=== PATIENT | male | born 1965 | race Hispanic/Latino ===

== ENCOUNTER 2022-02-13 08:48 | Inpatient (IN) | payer OTHER ==
[~2022-02-13] VITALS: Ht 167.6 cm; Wt 71.4 kg
[2022-02-13 11:32] VITALS: BP 143/93
[2022-02-13] MEDS ORDERED: FAMO20TA8 PO (11:40)
[2022-02-13] MEDS ORDERED: GLYB2.5T5 PO (11:40)
[2022-02-13] MEDS ORDERED: METF-445 PO (11:40)
[2022-02-13] MEDS ORDERED: GEMF600T89 PO (11:40)
[2022-02-13] MEDS ORDERED: CHOL500050 PO (11:40)
[2022-02-13] MEDS ORDERED: PROM25TA7 PO (11:40)
[2022-02-13 14:57] VITALS: BP 140/82
[2022-02-13 15:13] LABS: INR 0.94 (0.85-1.15); PROTHROMBIN TIME 10.3 SEC (9.6-11.6)
[2022-02-13 15:14] LABS: PARTIAL THROMBOPLASTIN TIME 40.6 SEC (26.3-35.5)
[2022-02-13] MEDS ORDERED: HEPARIN 25,000 UNITS/250ML D5W 250 ML IV SCH (15:30)
[2022-02-13] MEDS ORDERED: HEPARIN 5,000 UNIT VIAL IV SCH (16:30)
[2022-02-13] MEDS ORDERED: ACETAMINOPHEN 325 MG TAB PO PRN (19:30)
[2022-02-13] MEDS ORDERED: TEMAZEPAM 15 MG CAPSULE PO PRN (19:30)
[2022-02-13] MEDS ORDERED: ACETAMINOPHEN 650 MG SUPPOSITORY RC PRN (19:30)
[2022-02-13] MEDS ORDERED: ONDANSETRON 4MG INJ IVP PRN (19:30)
[2022-02-13] MEDS ORDERED: HYDRALAZINE 20MG/ML VIAL IV PRN (19:30)
[2022-02-13] MEDS ORDERED: MORPHINE 2 MG SYG IVP PRN (19:30)
[2022-02-13] MEDS ORDERED: LACTULOSE 20 GM/30 ML UDCUP PO PRN (19:30)
[2022-02-13] MEDS ORDERED: NITROGLYCERIN 50MG/D5W 250ML 250 BOT IV PRN (19:30)
[2022-02-13 19:42] VITALS: BP 110/69
[2022-02-13] MEDS: INSULIN HUMULIN R 100 UNIT/ML 3ML SQ SCH (20:21)
[2022-02-13 21:11] LABS: INR 0.94 (0.85-1.15); PROTHROMBIN TIME 10.3 SEC (9.6-11.6)
[2022-02-13 21:12] LABS: PARTIAL THROMBOPLASTIN TIME 47.6 SEC (26.3-35.5)
[2022-02-13 23:53] VITALS: BP 96/67
[2022-02-14 03:41] LABS: BASOPHILS % (AUTO) 0.4 % (0.0-5.0); EOSINOPHILS % (AUTO) 4.2 % (0.0-8.0); HEMATOCRIT 37.5 % (42-54); LYMPHOCYTES % (AUTO) 27.4 % (21.0-51.0); MEAN CORPUSCULAR HEMOGLOBIN 30.4 pg (27.0-33.0); MEAN CORPUSCULAR HGB CONC 34.1 g/dL (32.0-36.0); MEAN CORPUSCULAR VOLUME 89.1 fL (79-99); MONOCYTES % (AUTO) 11.4 % (3.0-13.0); NEUTROPHILS % (AUTO) 56.2 % (40.0-77.0); PLATELET COUNT (AUTO) 206 K/uL (130-400); RED BLOOD CELL COUNT(AUTO) 4.21 MIL/uL (4.50-6.20); RED CELL DISTRIBUTION WIDTH 12.3 % (11.0-15.5); WHITE BLOOD COUNT (AUTO) 7.1 K/uL (4.8-10.8)
[2022-02-14 03:59] LABS: CREATININE 0.8 mg/dL (0.5-1.5); MAGNESIUM 1.9 mg/dL (1.80-2.40); PHOSPHORUS 3.5 mg/dL (2.5-4.9); POTASSIUM 3.1 mmol/L (3.5-5.1)
[2022-02-14 04:05] LABS: B-TYPE NATRIURETIC PEPTIDE 136 pg/mL (0-100)
[2022-02-14 04:26] LABS: PROTHROMBIN TIME 10.9 SEC (9.6-11.6)
[2022-02-14 04:36] VITALS: BP 101/70
[2022-02-14 04:49] LABS: PARTIAL THROMBOPLASTIN TIME 137.8 SEC (26.3-35.5)
[2022-02-14] MEDS ORDERED: LIDOCAINE HCL-MPF 1% 2ML VIAL IJ PRN (06:00)
[2022-02-14] MEDS ORDERED: KCL 20 MEQ ERTAB PO PRN (06:00)
[2022-02-14] MEDS ORDERED: POTASSIUM CHLORIDE 20MEQ/100ML 100 ML IV PRN (06:00)
[2022-02-14] MEDS ORDERED: MAGNESIUM 2GM PREMIX 50ML 50 ML IV PRN (06:00)
[2022-02-14] MEDS ORDERED: KCL 20 MEQ ERTAB PO ONE (06:11)
[2022-02-14] MEDS ORDERED: MAGNESIUM 2GM PREMIX 50ML 50 ML IV ONE (06:11)
[2022-02-14] MEDS: INSULIN HUMULIN R 100 UNIT/ML 3ML SQ SCH ×4 (06:28→21:24)
[2022-02-14 07:00] VITALS: BP 118/70
[2022-02-14] MEDS: POLYETHYLENE GLYCOL 3350 17 GM POWD.PACK PO SCH (07:55)
[2022-02-14] MEDS: PANTOPRAZOLE 40 MG TAB DR PO SCH (07:55)
[2022-02-14] MEDS: ASPIRIN 81MG CHEW TAB PO SCH (07:55)
[2022-02-14 11:08] LABS: INR 0.97 (0.85-1.15); PROTHROMBIN TIME 10.6 SEC (9.6-11.6)
[2022-02-14 11:19] VITALS: BP 99/65
[2022-02-14 11:24] LABS: PARTIAL THROMBOPLASTIN TIME 93.4 SEC (26.3-35.5)
[2022-02-14] MEDS: POTASSIUM CHLORIDE 10% ELIXIR 20 MEQ/15 ML UDCUP PO PRN (14:01)
[2022-02-14 15:03] VITALS: BP 127/78
[2022-02-14 19:34] VITALS: BP 126/77
[2022-02-14] MEDS: METOPROLOL TARTRATE 25 MG TAB PO SCH (20:35)
[2022-02-14 23:47] VITALS: BP 94/62
[2022-02-15] VITALS (32 sets, daily range): BP systolic 89–285; BP diastolic 46–282
[2022-02-15 03:40] LABS: ABG HCO3 23.6 mmol/L (21.0-28.0); ABG OXYGEN SATURATION 95.6 % (95.0-99.0); ABG PCO2 40 mmHg (35-48)
[2022-02-15 03:44] LABS: HEMATOCRIT 38.4 % (42-54); MEAN CORPUSCULAR HEMOGLOBIN 30.6 pg (27.0-33.0); MEAN CORPUSCULAR HGB CONC 33.6 g/dL (32.0-36.0); RED BLOOD CELL COUNT(AUTO) 4.22 MIL/uL (4.50-6.20); RED CELL DISTRIBUTION WIDTH 12.6 % (11.0-15.5); WHITE BLOOD COUNT (AUTO) 6.3 K/uL (4.8-10.8)
[2022-02-15 03:53] LABS: INR 0.96 (0.85-1.15); PROTHROMBIN TIME 10.5 SEC (9.6-11.6)
[2022-02-15 03:54] LABS: CREATININE 0.9 mg/dL (0.5-1.5); POTASSIUM 3.8 mmol/L (3.5-5.1)
[2022-02-15 03:55] LABS: PARTIAL THROMBOPLASTIN TIME 29.6 SEC (26.3-35.5)
[2022-02-15 03:57] LABS: HEMOGLOBIN A1C 11.5 % (4.0-6.0)
[2022-02-15 03:58] LABS: ALBUMIN 2.8 g/dL (3.5-5.0); TOTAL PROTEIN, SERUM 6.2 g/dL (6.0-8.3)
[2022-02-15] MEDS: INSULIN HUMULIN R 100 UNIT/ML 3ML SQ SCH ×3 (05:51→16:30)
[2022-02-15] MEDS ORDERED: NOREPINEPHRINE BITARTRATE 8 MG in 0.9% NACL 250ML 250 ML IV PRN (07:30)
[2022-02-15] MEDS ORDERED: AMINOCAPROIC ACID 5,000MG VIAL 15,000 MG in 0.9% NACL 500ML IV.SOLN 420 ML IV PRN (07:30)
[2022-02-15] MEDS ORDERED: EPINEPHRINE PF 1MG (1:1,000) 10 MG in 0.9% NACL 250ML 240 ML IV PRN ×2 (07:30→17:00)
[2022-02-15] MEDS: ASPIRIN 81MG CHEW TAB PO SCH (09:00)
[2022-02-15] MEDS: POLYETHYLENE GLYCOL 3350 17 GM POWD.PACK PO SCH (09:00)
[2022-02-15] MEDS ORDERED: CEFAZOLIN SODIUM 1 GM VIAL IVP SCH (09:00)
[2022-02-15] MEDS: METOPROLOL TARTRATE 25 MG TAB PO SCH (09:20)
[2022-02-15] MEDS: PANTOPRAZOLE 40 MG TAB DR PO SCH (09:21)
[2022-02-15] MEDS ORDERED: CEFAZOLIN SODIUM 1 GM VIAL ONE ×2 (14:42→16:11)
[2022-02-15] MEDS ORDERED: PROTAMINE SULFATE 10 MG/ML 25ML VIAL IV ONE (15:23)
[2022-02-15] MEDS ORDERED: AMINOCAPROIC ACID 5,000MG VIAL ONE (15:23)
[2022-02-15] MEDS ORDERED: NOREPINEPHRINE BITARTRATE 1 MG/1 ML ML IV ONE (15:23)
[2022-02-15] MEDS ORDERED: ESMOLOL HCL 10 MG/ML 10 ML VIAL ONE (15:23)
[2022-02-15] MEDS ORDERED: EPINEPHRINE PF 1MG (1:1,000) 1 MG/ML AMP ONE (15:23)
[2022-02-15] MEDS ORDERED: LIDOCAINE PF 100MG/5ML (2%) SYRINGE 5ML ONE (15:23)
[2022-02-15] MEDS ORDERED: HEPARIN 10,000 UNIT/10ML (1,000 UNIT/ML) VIAL ONE ×2 (15:23→17:17)
[2022-02-15] MEDS ORDERED: PROPOFOL 10 MG/ML 20ML VIAL IV ONE (15:23)
[2022-02-15] MEDS ORDERED: FENTANYL CITRATE PF 50 MCG/1 ML 20ML VIAL IJ ONE (15:23)
[2022-02-15] MEDS ORDERED: MIDAZOLAM HCL 1 MG/ML 2ML VIAL ONE (15:24)
[2022-02-15] MEDS ORDERED: ROCURONIUM 10MG/1ML SYR 10 MG/ML ML ONE ×2 (15:24→16:55)
[2022-02-15] MEDS ORDERED: CEFAZOLIN SODIUM 1 GM VIAL IVP PRN (15:30)
[2022-02-15] MEDS ORDERED: PAPAVERINE HCL 30 MG/ML 2ML VIAL ONE (16:11)
[2022-02-15 16:19] LABS: ABG BASE EXCESS -4.7 mmol/L (-2.0-3.0); ABG HCO3 21.9 mmol/L (21.0-28.0); ABG OXYGEN SATURATION 99.4 % (95.0-99.0); ABG PCO2 46 mmHg (35-48)
[2022-02-15] MEDS ORDERED: DEXTROSE 50%-WATER 50 ML DISP.SYRIN IV PRN (17:00)
[2022-02-15] MEDS ORDERED: NITROGLYCERIN 50MG/D5W 250ML 250 BOT IV SCH (17:00)
[2022-02-15] MEDS ORDERED: 0.9%NACL 10ML VIAL IVP PRN (17:00)
[2022-02-15] MEDS ORDERED: AMINOCAPROIC ACID 5,000MG VIAL 15,000 MG in 0.9% NACL 250ML 250 ML IV SCH (17:00)
[2022-02-15] MEDS ORDERED: PROPOFOL 1000 MG/100 ML 100 ML IV PRN (17:00)
[2022-02-15] MEDS ORDERED: TRAMADOL HCL 50 MG TABLET PO PRN (17:00)
[2022-02-15] MEDS ORDERED: MORPHINE 2 MG SYG IV PRN (17:00)
[2022-02-15] MEDS ORDERED: 0.9% NACL 500ML IV.SOLN 500 ML IV SCH (17:00)
[2022-02-15] MEDS ORDERED: ACETAMINOPHEN 650 MG SUPPOSITORY RC PRN (17:00)
[2022-02-15] MEDS ORDERED: MORPHINE 4 MG SYG IV PRN (17:00)
[2022-02-15] MEDS ORDERED: 0.9%NACL 1000ML 1,000 ML IV SCH (17:00)
[2022-02-15] MEDS ORDERED: ALBUMIN (HUMAN) 5% 250 ML IV PRN (17:00)
[2022-02-15] MEDS ORDERED: GLUCAGON 1MG KIT 1 MG ML IM PRN (17:00)
[2022-02-15] MEDS ORDERED: ACETAMINOPHEN 325 MG TAB PO PRN (17:00)
[2022-02-15 18:12] LABS: ABG HCO3 20.5 mmol/L (21.0-28.0); ABG OXYGEN SATURATION 99.2 % (95.0-99.0); ABG PCO2 36 mmHg (35-48)
[2022-02-15] MEDS ORDERED: ASPIRIN 81MG CHEW TAB NG ONE (18:30)
[2022-02-15 18:54] LABS: ABG BASE EXCESS -5.8 mmol/L (-2.0-3.0); ABG HCO3 18.6 mmol/L (21.0-28.0); ABG OXYGEN SATURATION 98.7 % (95.0-99.0); ABG PCO2 33 mmHg (35-48)
[2022-02-15 18:54] LABS: HEMATOCRIT 35.2 % (42-54); MEAN CORPUSCULAR HGB CONC 34.1 g/dL (32.0-36.0); RED BLOOD CELL COUNT(AUTO) 3.87 MIL/uL (4.50-6.20); RED CELL DISTRIBUTION WIDTH 12.5 % (11.0-15.5); WHITE BLOOD COUNT (AUTO) 17.2 K/uL (4.8-10.8)
[2022-02-15 19:08] LABS: MAGNESIUM 1.4 mg/dL (1.80-2.40); PHOSPHORUS 3.7 mg/dL (2.5-4.9)
[2022-02-15] MEDS: SODIUM BICARB 50MEQ 50ML VIAL IV PRN ×7 (19:11→23:09)
[2022-02-15] MEDS: CALCIUM GLUC 1GM 1 GM in 0.9%NACL 50ML 50 ML IV PRN ×3 (19:11→21:20)
[2022-02-15] MEDS: POTASSIUM CHLORIDE 20MEQ/100ML 100 ML IV PRN ×3 (19:13→22:55)
[2022-02-15 19:14] LABS: INR 1.1 (0.85-1.15); PROTHROMBIN TIME 11.9 SEC (9.6-11.6)
[2022-02-15 19:16] LABS: PARTIAL THROMBOPLASTIN TIME 27.1 SEC (26.3-35.5); POTASSIUM 2.9 mmol/L (3.5-5.1)
[2022-02-15] MEDS: INSULIN REGULAR, HUMAN 3ML 100 UNIT in 0.9%NACL 100ML 99 ML IV SCH ×2 (19:17)
[2022-02-15] MEDS: MAGNESIUM 2GM PREMIX 50ML 50 ML IV PRN (20:05)
[2022-02-15] MEDS: ATORVASTATIN 40 MG TABLET PO SCH (20:07)
[2022-02-15] MEDS: FAMOTIDINE 20MG VIAL IV SCH (20:07)
[2022-02-15 20:13] LABS: ABG BASE EXCESS -2.2 mmol/L (-2.0-3.0); ABG HCO3 22.7 mmol/L (21.0-28.0); ABG PCO2 39 mmHg (35-48)
[2022-02-15 21:17] LABS: ABG HCO3 21.6 mmol/L (21.0-28.0); ABG OXYGEN SATURATION 98.3 % (95.0-99.0); ABG PCO2 37 mmHg (35-48)
[2022-02-15] MEDS: ONDANSETRON 4MG INJ IV PRN (21:32)
[2022-02-15] MEDS: CEFAZOLIN SODIUM 1 GM VIAL IV SCH (22:05)
[2022-02-15 22:35] LABS: ABG BASE EXCESS 0.2 mmol/L (-2.0-3.0); ABG HCO3 24.4 mmol/L (21.0-28.0); ABG OXYGEN SATURATION 98.2 % (95.0-99.0); ABG PCO2 38 mmHg (35-48)
[2022-02-15 23:07] LABS: ABG BASE EXCESS -0.1 mmol/L (-2.0-3.0); ABG HCO3 25.4 mmol/L (21.0-28.0); ABG OXYGEN SATURATION 98.1 % (95.0-99.0); ABG PCO2 45 mmHg (35-48)
[2022-02-16] VITALS (105 sets, daily range): BP systolic 50–173; BP diastolic 32–82
[2022-02-16 00:19] LABS: ABG BASE EXCESS 1.3 mmol/L (-2.0-3.0); ABG HCO3 26.1 mmol/L (21.0-28.0); ABG OXYGEN SATURATION 97.7 % (95.0-99.0); ABG PCO2 42 mmHg (35-48)
[2022-02-16] MEDS: CALCIUM GLUC 1GM 1 GM in 0.9%NACL 50ML 50 ML IV PRN ×6 (00:24→17:36)
[2022-02-16] MEDS: POTASSIUM CHLORIDE 20MEQ/100ML 100 ML IV PRN ×4 (00:25→09:25)
[2022-02-16] MEDS ORDERED: 0.9% NACL 250ML 250 ML ONE (00:50)
[2022-02-16] MEDS: ONDANSETRON 4MG INJ IV PRN ×3 (03:27→19:49)
[2022-02-16] MEDS: TRAMADOL HCL 50 MG TABLET PO PRN (04:11)
[2022-02-16 04:13] LABS: HEMATOCRIT 31.8 % (42-54); MEAN CORPUSCULAR HEMOGLOBIN 30.9 pg (27.0-33.0); MEAN CORPUSCULAR HGB CONC 33.6 g/dL (32.0-36.0); MEAN CORPUSCULAR VOLUME 91.9 fL (79-99); RED BLOOD CELL COUNT(AUTO) 3.46 MIL/uL (4.50-6.20); RED CELL DISTRIBUTION WIDTH 12.8 % (11.0-15.5); WHITE BLOOD COUNT (AUTO) 12.9 K/uL (4.8-10.8)
[2022-02-16 04:29] LABS: INR 1.02 (0.85-1.15); PROTHROMBIN TIME 11.1 SEC (9.6-11.6)
[2022-02-16 04:30] LABS: PARTIAL THROMBOPLASTIN TIME 26.8 SEC (26.3-35.5)
[2022-02-16 04:35] LABS: CREATININE 1.2 mg/dL (0.5-1.5); MAGNESIUM 1.8 mg/dL (1.80-2.40); PHOSPHORUS 0.7 mg/dL (2.5-4.9)
[2022-02-16 04:44] LABS: POTASSIUM 2.6 mmol/L (3.5-5.1)
[2022-02-16 05:11] LABS: ABG BASE EXCESS 1.9 mmol/L (-2.0-3.0); ABG HCO3 27.3 mmol/L (21.0-28.0); ABG OXYGEN SATURATION 97.6 % (95.0-99.0); ABG PCO2 46 mmHg (35-48)
[2022-02-16] MEDS: MAGNESIUM 2GM PREMIX 50ML 50 ML IV PRN ×2 (05:19→13:26)
[2022-02-16] MEDS: CEFAZOLIN SODIUM 1 GM VIAL IV SCH ×2 (05:58→13:26)
[2022-02-16] MEDS: POTASSIUM PHOS 15 mMOL+NS250ML 250 ML IV PRN (06:32)
[2022-02-16] MEDS ORDERED: ACETAMINOPHEN 325 MG TAB PO PRN (07:30)
[2022-02-16] MEDS: FAMOTIDINE 20MG VIAL IV SCH ×2 (07:47→21:13)
[2022-02-16] MEDS: FUROSEMIDE 20MG VIAL IV SCH ×2 (07:47→21:13)
[2022-02-16] MEDS: INSULIN REGULAR, HUMAN 3ML 100 UNIT in 0.9%NACL 100ML 99 ML IV SCH ×2 (09:05)
[2022-02-16 09:16] LABS: POTASSIUM 3.7 mmol/L (3.5-5.1)
[2022-02-16] MEDS ORDERED: ALBUMIN (HUMAN) 5% 250 ML IV ONE (09:56)
[2022-02-16 12:31] LABS: CREATININE 0.9 mg/dL (0.5-1.5); MAGNESIUM 1.8 mg/dL (1.80-2.40); POTASSIUM 4.2 mmol/L (3.5-5.1)
[2022-02-16 15:52] LABS: HEMATOCRIT 29.9 % (42-54)
[2022-02-16 16:07] LABS: MAGNESIUM 2.5 mg/dL (1.80-2.40); PHOSPHORUS 5.1 mg/dL (2.5-4.9); POTASSIUM 4.2 mmol/L (3.5-5.1)
[2022-02-16] MEDS ORDERED: CALCIUM GLUC 1GM/10ML VIAL ONE (17:28)
[2022-02-16] MEDS: ATORVASTATIN 40 MG TABLET PO SCH (21:13)
[2022-02-17] VITALS (31 sets, daily range): BP systolic 87–166; BP diastolic 44–88
[2022-02-17 04:03] LABS: HEMATOCRIT 31.5 % (42-54); MEAN CORPUSCULAR HEMOGLOBIN 30.7 pg (27.0-33.0); MEAN CORPUSCULAR VOLUME 92.9 fL (79-99); RED BLOOD CELL COUNT(AUTO) 3.39 MIL/uL (4.50-6.20); RED CELL DISTRIBUTION WIDTH 13.1 % (11.0-15.5); WHITE BLOOD COUNT (AUTO) 15.6 K/uL (4.8-10.8)
[2022-02-17 04:25] LABS: CREATININE 0.9 mg/dL (0.5-1.5); POTASSIUM 4.5 mmol/L (3.5-5.1)
[2022-02-17] MEDS ORDERED: 0.9%NACL 1000ML 1,000 ML IV ONE (06:09)
[2022-02-17] MEDS: FUROSEMIDE 20 MG TABLET PO SCH ×2 (08:31→17:30)
[2022-02-17] MEDS: FAMOTIDINE 20MG VIAL IV SCH ×2 (08:31→21:15)
[2022-02-17] MEDS: FUROSEMIDE 20MG VIAL IV SCH (08:34)
[2022-02-17] MEDS: METOPROLOL TARTRATE 25 MG TAB PO SCH ×2 (09:00→22:02)
[2022-02-17] MEDS: TRAMADOL HCL 50 MG TABLET PO PRN (14:27)
[2022-02-17] MEDS: INSULIN HUMULIN R 100 UNIT/ML 3ML SQ SCH ×2 (17:32→21:31)
[2022-02-17] MEDS: ATORVASTATIN 40 MG TABLET PO SCH (21:15)
[2022-02-18] VITALS (53 sets, daily range): BP systolic 66–183; BP diastolic 32–90
[2022-02-18] MEDS: NOREPINEPHRIN 4MG/NS 250ML 250 ML IV PRN ×2 (01:13→14:49)
[2022-02-18 04:40] LABS: HEMATOCRIT 28.2 % (42-54); MEAN CORPUSCULAR HEMOGLOBIN 30.5 pg (27.0-33.0); MEAN CORPUSCULAR HGB CONC 33.7 g/dL (32.0-36.0); MEAN CORPUSCULAR VOLUME 90.7 fL (79-99); RED BLOOD CELL COUNT(AUTO) 3.11 MIL/uL (4.50-6.20); RED CELL DISTRIBUTION WIDTH 12.3 % (11.0-15.5); WHITE BLOOD COUNT (AUTO) 13.3 K/uL (4.8-10.8)
[2022-02-18 05:05] LABS: CREATININE 0.7 mg/dL (0.5-1.5); POTASSIUM 3.9 mmol/L (3.5-5.1)
[2022-02-18] MEDS: INSULIN HUMULIN R 100 UNIT/ML 3ML SQ SCH ×4 (07:30→20:40)
[2022-02-18] MEDS: FUROSEMIDE 20 MG TABLET PO SCH (08:13)
[2022-02-18] MEDS: METOPROLOL TARTRATE 25 MG TAB PO SCH (08:32)
[2022-02-18] MEDS: FAMOTIDINE 20MG TAB PO SCH ×2 (09:22→20:28)
[2022-02-18] MEDS: POLYETHYLENE GLYCOL 3350 17 GM POWD.PACK PO SCH (09:22)
[2022-02-18] MEDS: MIDODRINE HCL 5 MG TABLET PO SCH ×3 (09:22→20:28)
[2022-02-18] MEDS: ASPIRIN 81MG CHEW TAB PO SCH (09:22)
[2022-02-18] MEDS: ENOXAPARIN SODIUM 30 MG/0.3 ML SQ SCH (09:23)
[2022-02-18] MEDS ORDERED: 0.9% NACL 500ML IV.SOLN 500 ML IV SCH (14:00)
[2022-02-18] MEDS: ATORVASTATIN 40 MG TABLET PO SCH (20:28)
[2022-02-19] VITALS (97 sets, daily range): BP systolic 73–154; BP diastolic 38–100
[2022-02-19 05:43] LABS: HEMATOCRIT 31.1 % (42-54); MEAN CORPUSCULAR HEMOGLOBIN 30.8 pg (27.0-33.0); MEAN CORPUSCULAR HGB CONC 34.4 g/dL (32.0-36.0); MEAN CORPUSCULAR VOLUME 89.6 fL (79-99); RED BLOOD CELL COUNT(AUTO) 3.47 MIL/uL (4.50-6.20); RED CELL DISTRIBUTION WIDTH 12.2 % (11.0-15.5); WHITE BLOOD COUNT (AUTO) 8.4 K/uL (4.8-10.8)
[2022-02-19 06:05] LABS: CREATININE 0.7 mg/dL (0.5-1.5); POTASSIUM 3.8 mmol/L (3.5-5.1)
[2022-02-19] MEDS: INSULIN HUMULIN R 100 UNIT/ML 3ML SQ SCH ×4 (06:32→21:27)
[2022-02-19 07:53] LABS: MAGNESIUM 1.2 mg/dL (1.80-2.40); PHOSPHORUS 1.9 mg/dL (2.5-4.9)
[2022-02-19] MEDS: ASPIRIN 81MG CHEW TAB PO SCH (08:13)
[2022-02-19] MEDS: FUROSEMIDE 20 MG TABLET PO SCH (08:13)
[2022-02-19] MEDS: FAMOTIDINE 20MG TAB PO SCH ×2 (08:13→21:21)
[2022-02-19] MEDS: MIDODRINE HCL 5 MG TABLET PO SCH ×3 (08:13→21:21)
[2022-02-19] MEDS: ENOXAPARIN SODIUM 30 MG/0.3 ML SQ SCH (08:14)
[2022-02-19] MEDS: MAGNESIUM 2GM PREMIX 50ML 50 ML IV PRN ×2 (08:15→21:27)
[2022-02-19] MEDS: POLYETHYLENE GLYCOL 3350 17 GM POWD.PACK PO SCH (08:15)
[2022-02-19] MEDS: POTASSIUM CHLORIDE 20MEQ/100ML 100 ML IV PRN ×2 (08:15→21:27)
[2022-02-19] MEDS: CALCIUM GLUC 1GM 1 GM in 0.9%NACL 50ML 50 ML IV PRN ×8 (09:01→17:44)
[2022-02-19] MEDS: POTASSIUM PHOS 15 mMOL+NS250ML 250 ML IV PRN (09:02)
[2022-02-19 11:53] LABS: MAGNESIUM 2.3 mg/dL (1.80-2.40)
[2022-02-19 19:17] LABS: MAGNESIUM 1.8 mg/dL (1.80-2.40); PHOSPHORUS 4.1 mg/dL (2.5-4.9); POTASSIUM 3.6 mmol/L (3.5-5.1)
[2022-02-19] MEDS: ATORVASTATIN 40 MG TABLET PO SCH (21:21)
[2022-02-20] VITALS (89 sets, daily range): BP systolic 69–158; BP diastolic 37–109
[2022-02-20 03:43] LABS: BASOPHILS % (AUTO) 0.4 % (0.0-5.0); HEMATOCRIT 31.1 % (42-54); LYMPHOCYTES % (AUTO) 20.7 % (21.0-51.0); MEAN CORPUSCULAR HGB CONC 33.4 g/dL (32.0-36.0); MEAN CORPUSCULAR VOLUME 89.6 fL (79-99); MONOCYTES % (AUTO) 10.2 % (3.0-13.0); NEUTROPHILS % (AUTO) 61.4 % (40.0-77.0); PLATELET COUNT (AUTO) 206 K/uL (130-400); RED BLOOD CELL COUNT(AUTO) 3.47 MIL/uL (4.50-6.20); RED CELL DISTRIBUTION WIDTH 12.2 % (11.0-15.5); WHITE BLOOD COUNT (AUTO) 7.3 K/uL (4.8-10.8)
[2022-02-20 03:54] LABS: ALBUMIN 2.4 g/dL (3.5-5.0); CREATININE 0.8 mg/dL (0.5-1.5); MAGNESIUM 1.9 mg/dL (1.80-2.40); POTASSIUM 3.7 mmol/L (3.5-5.1); TOTAL PROTEIN, SERUM 5.8 g/dL (6.0-8.3)
[2022-02-20] MEDS: INSULIN HUMULIN R 100 UNIT/ML 3ML SQ SCH ×4 (07:12→21:38)
[2022-02-20] MEDS: POLYETHYLENE GLYCOL 3350 17 GM POWD.PACK PO SCH (09:40)
[2022-02-20] MEDS: FAMOTIDINE 20MG TAB PO SCH ×2 (09:40→21:16)
[2022-02-20] MEDS: ASPIRIN 81MG CHEW TAB PO SCH (09:41)
[2022-02-20] MEDS: ENOXAPARIN SODIUM 30 MG/0.3 ML SQ SCH (09:41)
[2022-02-20] MEDS: MIDODRINE HCL 5 MG TABLET PO SCH ×3 (09:41→21:17)
[2022-02-20] MEDS ORDERED: ALBUMIN (HUMAN) 25% 50 ML IV SCH (13:30)
[2022-02-20] MEDS: ATORVASTATIN 40 MG TABLET PO SCH (21:16)
[2022-02-21] VITALS (29 sets, daily range): BP systolic 78–129; BP diastolic 36–88
[2022-02-21 04:18] LABS: BASOPHILS % (AUTO) 0.5 % (0.0-5.0); EOSINOPHILS % (AUTO) 6.8 % (0.0-8.0); HEMATOCRIT 31.9 % (42-54); LYMPHOCYTES % (AUTO) 23.8 % (21.0-51.0); MEAN CORPUSCULAR HEMOGLOBIN 30.1 pg (27.0-33.0); MEAN CORPUSCULAR HGB CONC 33.5 g/dL (32.0-36.0); MEAN CORPUSCULAR VOLUME 89.9 fL (79-99); MONOCYTES % (AUTO) 13.9 % (3.0-13.0); NEUTROPHILS % (AUTO) 54.5 % (40.0-77.0); PLATELET COUNT (AUTO) 241 K/uL (130-400); RED BLOOD CELL COUNT(AUTO) 3.55 MIL/uL (4.50-6.20); RED CELL DISTRIBUTION WIDTH 12.1 % (11.0-15.5); WHITE BLOOD COUNT (AUTO) 6.3 K/uL (4.8-10.8)
[2022-02-21 04:38] LABS: ALBUMIN 2.4 g/dL (3.5-5.0); CREATININE 0.7 mg/dL (0.5-1.5); MAGNESIUM 1.8 mg/dL (1.80-2.40); PHOSPHORUS 3.4 mg/dL (2.5-4.9); POTASSIUM 3.6 mmol/L (3.5-5.1); TOTAL PROTEIN, SERUM 5.8 g/dL (6.0-8.3)
[2022-02-21] MEDS: MAGNESIUM 2GM PREMIX 50ML 50 ML IV PRN (06:39)
[2022-02-21] MEDS: INSULIN HUMULIN R 100 UNIT/ML 3ML SQ SCH ×4 (06:56→20:59)
[2022-02-21] MEDS: ASPIRIN 81MG CHEW TAB PO SCH (08:35)
[2022-02-21] MEDS: FAMOTIDINE 20MG TAB PO SCH ×2 (08:35→20:20)
[2022-02-21] MEDS: MIDODRINE HCL 5 MG TABLET PO SCH ×3 (08:35→20:20)
[2022-02-21] MEDS: POLYETHYLENE GLYCOL 3350 17 GM POWD.PACK PO SCH (08:35)
[2022-02-21] MEDS: ENOXAPARIN SODIUM 30 MG/0.3 ML SQ SCH (08:36)
[2022-02-21] MEDS ORDERED: KCL 20 MEQ ERTAB PO PRN (17:00)
[2022-02-21] MEDS ORDERED: POTASSIUM CHLORIDE 10% ELIXIR 20 MEQ/15 ML UDCUP PO PRN (17:00)
[2022-02-21] MEDS: ATORVASTATIN 40 MG TABLET PO SCH (20:19)
[2022-02-22] VITALS (12 sets, daily range): BP systolic 89–121; BP diastolic 43–71
[2022-02-22 04:28] LABS: BASOPHILS % (AUTO) 0.4 % (0.0-5.0); EOSINOPHILS % (AUTO) 7.6 % (0.0-8.0); HEMATOCRIT 29.8 % (42-54); LYMPHOCYTES % (AUTO) 19.6 % (21.0-51.0); MEAN CORPUSCULAR HEMOGLOBIN 30.6 pg (27.0-33.0); MEAN CORPUSCULAR HGB CONC 33.6 g/dL (32.0-36.0); MEAN CORPUSCULAR VOLUME 91.1 fL (79-99); MONOCYTES % (AUTO) 13.6 % (3.0-13.0); NEUTROPHILS % (AUTO) 58.1 % (40.0-77.0); PLATELET COUNT (AUTO) 268 K/uL (130-400); RED BLOOD CELL COUNT(AUTO) 3.27 MIL/uL (4.50-6.20); RED CELL DISTRIBUTION WIDTH 12.6 % (11.0-15.5); WHITE BLOOD COUNT (AUTO) 7.7 K/uL (4.8-10.8)
[2022-02-22 04:51] LABS: ALBUMIN 2.3 g/dL (3.5-5.0); CREATININE 0.8 mg/dL (0.5-1.5); MAGNESIUM 1.8 mg/dL (1.80-2.40); POTASSIUM 3.8 mmol/L (3.5-5.1); TOTAL PROTEIN, SERUM 5.6 g/dL (6.0-8.3)
[2022-02-22] MEDS: INSULIN HUMULIN R 100 UNIT/ML 3ML SQ SCH ×4 (06:58→21:25)
[2022-02-22] MEDS: POLYETHYLENE GLYCOL 3350 17 GM POWD.PACK PO SCH (08:23)
[2022-02-22] MEDS: ENOXAPARIN SODIUM 30 MG/0.3 ML SQ SCH (08:23)
[2022-02-22] MEDS: MIDODRINE HCL 5 MG TABLET PO SCH ×3 (08:23→20:28)
[2022-02-22] MEDS: ASPIRIN 81MG CHEW TAB PO SCH (08:24)
[2022-02-22] MEDS: FAMOTIDINE 20MG TAB PO SCH ×2 (08:24→20:28)
[2022-02-22] MEDS: ATORVASTATIN 40 MG TABLET PO SCH (20:28)
[2022-02-23 04:28] VITALS: BP 90/58
[2022-02-23 04:29] LABS: BASOPHILS % (AUTO) 0.3 % (0.0-5.0); EOSINOPHILS % (AUTO) 7.1 % (0.0-8.0); HEMATOCRIT 30.4 % (42-54); LYMPHOCYTES % (AUTO) 21.2 % (21.0-51.0); MEAN CORPUSCULAR HEMOGLOBIN 29.9 pg (27.0-33.0); MEAN CORPUSCULAR HGB CONC 32.6 g/dL (32.0-36.0); MEAN CORPUSCULAR VOLUME 91.8 fL (79-99); MONOCYTES % (AUTO) 11.1 % (3.0-13.0); NEUTROPHILS % (AUTO) 59.7 % (40.0-77.0); PLATELET COUNT (AUTO) 287 K/uL (130-400); RED BLOOD CELL COUNT(AUTO) 3.31 MIL/uL (4.50-6.20); RED CELL DISTRIBUTION WIDTH 12.7 % (11.0-15.5); WHITE BLOOD COUNT (AUTO) 8.6 K/uL (4.8-10.8)
[2022-02-23 04:41] LABS: CREATININE 0.8 mg/dL (0.5-1.5); POTASSIUM 3.9 mmol/L (3.5-5.1)
[2022-02-23 07:05] VITALS: BP 90/54
[2022-02-23] MEDS: INSULIN HUMULIN R 100 UNIT/ML 3ML SQ SCH ×2 (07:30→12:45)
[2022-02-23] MEDS: ASPIRIN 81MG CHEW TAB PO SCH (08:56)
[2022-02-23] MEDS: MIDODRINE HCL 5 MG TABLET PO SCH ×2 (08:56→14:27)
[2022-02-23] MEDS: POLYETHYLENE GLYCOL 3350 17 GM POWD.PACK PO SCH (08:56)
[2022-02-23] MEDS: FAMOTIDINE 20MG TAB PO SCH (08:56)
[2022-02-23] MEDS: ENOXAPARIN SODIUM 30 MG/0.3 ML SQ SCH (08:56)
[2022-02-23 12:47] VITALS: BP 108/72
[2022-02-23 16:00] VITALS: BP 144/76
[2022-02-23] MEDS ORDERED: ATOR40TA69 PO (16:24)
[2022-02-23] MEDS ORDERED: ASPI-1005 PO (16:24)
== END 2022-02-23 19:00 | disposition home or self-care (01) | DRG 235 ==
LOC: 2DH 11:04 → 2CV 02-15 16:07 → 2BH 02-16 05:30 → 2AH 02-22 06:36
PROVIDERS: ADMIT Internal Medicine; ATTEND Internal Medicine
PROC: 02100Z9 Bypass Coronary Artery, One Artery from Left Internal Mammary, Open Approach (ICD-10-PCS; principal; 2022-02-15 15:24)
PROC: 0210093 Bypass Coronary Artery, One Artery from Coronary Artery with Autologous Venous Tissue, Open Approach (ICD-10-PCS; 2022-02-15 15:24)
PROC: 06BQ4ZZ Excision of Left Saphenous Vein, Percutaneous Endoscopic Approach (ICD-10-PCS; 2022-02-15 15:24)
DX: I25.10 Atherosclerotic heart disease of native coronary artery without angina pectoris (principal); I21.4 Non-ST elevation (NSTEMI) myocardial infarction; E78.5 Hyperlipidemia, unspecified; Z20.822 Contact with and (suspected) exposure to COVID-19; I10 Essential (primary) hypertension; E11.65 Type 2 diabetes mellitus with hyperglycemia; E78.00 Pure hypercholesterolemia, unspecified; E86.1 Hypovolemia; E87.70 Fluid overload, unspecified; W18.39XA Other fall on same level, initial encounter; Z91.19 Patient's noncompliance with other medical treatment and regimen; I25.2 Old myocardial infarction; Y93.89 Activity, other specified; Y92.89 Other specified places as the place of occurrence of the external cause; Y99.8 Other external cause status; Z79.899 Other long term (current) drug therapy; Z91.14 Patient's other noncompliance with medication regimen
CPT/HCPCS: 36415; 36600; 71045; 80048; 80053; 80061; 82306; 82330; 82435; 82533; 82803; 82947; 82948; 83036; 83605; 83735; 83880; 84100; 84132; 84295; 85014; 85018; 85025; 85027; 85610; 85730; 86850; 86900; 86901; 86923; 87635; 93005; 93306; 93356; 93880; 94002; 94010; 94150; 97039; A7048; G0378; J0171; J0610; J0690; J1644; J1650; J1815; J1940; J2001; J2250; J2405; J2440; J2704; J2720; J3010; J3475; J3480; J3490; J7030; J7040; J7050; P9045; P9047